=== PATIENT | male | born 1960 | race African-American/Black ===

== ENCOUNTER 2017-07-28 09:50 | Observation (INO) | payer OTHER ==
[2017-07-28] VITALS (9 sets, daily range): BP systolic 102–143; BP diastolic 63–81
[~2017-07-28] VITALS: Ht 177.8 cm; Wt 85.7 kg
[~2017-07-28 09:50] MED LIST: CHLO25TA PO
[2017-07-28] MEDS ORDERED: 0.9 % SODIUM CHLORIDE 10 ML DISP.SYRIN. IV PRN (10:00)
[2017-07-28] MEDS ORDERED: ASPIRIN 81 MG TAB.CHEW PO ONE (10:00)
[2017-07-28] MEDS ORDERED: IV NORMAL SALINE 1,000ML 1,000 ML IV SCH (10:00)
[2017-07-28] MEDS ORDERED: dilTIAZem 25 MG/5 ML VIAL IVP ONE ×2 (10:15→11:00)
--- NOTE | 2017-07-28 10:15 | EKG ---
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
--- NOTE | 2017-07-28 10:22 | PHYS DOC ---
Past History Past Medical History: A-Fib, Hypertension, Other Past Surgical History: No Surgical History Smoking: Non-smoker, Quit Greater Than 1 Year Alcohol Use: Occasionally Drug Use: None Adult General Chief Complaint Chief Complaint: Palpitations HPI HPI Patient is a pleasant 57-year-old otherwise healthy male with a history of hypertension and paroxysmal atrial fibrillation first identified back in 2069 presents with palpitations. Patient sent to the ER by his primary care physician Dr. Ivana Richmond for continued evaluation of his palpitations and evident tachycardia. Patient has no shortness breath, no chest pain, no lightheadedness, no dizziness, no fever, no chills, no exercise tolerance problems, no recent travel outside the country and lower lobes leg swelling. Patient admits he is only on a daily Aleve or aspirin takes amlodipine and hydrochlorothiazide for blood pressure. Differential diagnosis: Acute myocardial ischemia, heart failure, cardiac tamponade, bronchospasm, pulmonary embolism, pneumothorax, pulmonary infection i.e. bronchitis or pneumonia, upper airway obstruction, anaphylaxis, aspiration , psychogenic, pulmonary contusion, toxidrome, pneumomediastinum, noncardiogenic pulmonary edema or ARDS, COPD, tuberculosis, cystic fibrosis, asthma, high altitude pulmonary edema, valvular dysfunction, cardiac dysrhythmia , stroke, neuromuscular diseases like myasthenia gravis gravis, ALS, Guillain- Truong syndrome, metabolic acidosis to include diabetic ketoacidosis, sepsis, and obstructive disorders like massive obesity Review of Systems Review of Systems Constitutional: Denies fever or chills [] Eyes: Denies change in visual acuity, redness, or eye pain [] HENT: Denies nasal congestion or sore throat [] Respiratory: Denies cough or shortness of breath [] Cardiovascular: Patient's only complaint is palpitations without chest pain GI: Denies abdominal pain, nausea, vomiting, bloody stools or diarrhea [] : Denies dysuria or hematuria [] Musculoskeletal: Denies back pain or joint pain [] Integument: Denies rash or skin lesions [] Neurologic: Denies headache, focal weakness or sensory changes [] Endocrine: Denies polyuria or polydipsia [] All other systems were reviewed and found to be within normal limits, except as documented in this note. Current Medications Current Medications Current Medications Medications (Trade) Dose Ordered Sig/Sarai Start Time Stop Time Status Last Admin Dose Admin Aspirin (Children'S Aspirin) 324 mg 1X ONCE 07/28/17 10:00 07/28/17 10:01 DC Diltiazem HCl (Cardizem) 20 mg 1X ONCE 07/28/17 10:15 07/28/17 10:16 Sodium Chloride (Normal Saline Flush) 10 ml QSHIFT PRN 07/28/17 10:00 Allergies Allergies Allergies Coded Allergies Type Severity Reaction Last Updated Verified No Known Drug Allergies 08/07/13 No Physical Exam Physical Exam Other vital signs noted on the chart patient and be very tachycardic in the 150s and hypertensive. Constitutional: Well developed, well nourished, no acute distress, non-toxic appearance. [] HENT: Normocephalic, atraumatic, bilateral external ears normal, oropharynx moist, no oral exudates, nose normal. [] Eyes: PERRLA, EOMI, conjunctiva normal, no discharge. [] Neck: Normal range of motion, no tenderness, supple, no stridor. [] Cardiovascular: Patient has an irregular irregular rapid rhythm no murmurs Rubs[ ] Lungs & Thorax: Bilateral breath sounds clear to auscultation [] Abdomen: Bowel sounds normal, soft, no tenderness, no masses, no pulsatile masses. [] Skin: Warm, dry, no erythema, no rash. [] Back: No tenderness, no CVA tenderness. [] Extremities: No tenderness, no cyanosis, no clubbing, ROM intact, no edema. [] Neurologic: Alert and oriented X 3, normal motor function, normal sensory function, no focal deficits noted. [] Psychologic: Affect normal, judgement normal, mood normal. [] Current Patient Data Lab Results Laboratory Tests Test 07/28/17 10:10 White Blood Count 7.1 x10^3/uL (4.0-11.0) Red Blood Count 5.14 x10^6/uL (4.30-5.70) Hemoglobin 16.5 g/dL (13.0-17.5) Hematocrit 45.9 % (39.0-53.0) Mean Corpuscular Volume 89 fL (79-100) Mean Corpuscular Hemoglobin 32 pg (25-35) Mean Corpuscular Hemoglobin Concent 36 g/dL (31-37) Red Cell Distribution Width 13.7 % (11.5-14.5) Platelet Count 155 x10^3/uL (140-400) Neutrophils (%) (Auto) 54 % (31-73) Lymphocytes (%) (Auto) 29 % (24-48) Monocytes (%) (Auto) 13 % (0-9) H Eosinophils (%) (Auto) 3 % (0-3) Basophils (%) (Auto) 0 % (0-3) Neutrophils # (Auto) 3.9 x10^3uL (1.8-7.7) Lymphocytes # (Auto) 2.1 x10^3/uL (1.0-4.8) Monocytes # (Auto) 0.9 x10^3/uL (0.0-1.1) Eosinophils # (Auto) 0.2 x10^3/uL (0.0-0.7) Basophils # (Auto) 0.0 x10^3/uL (0.0-0.2) Sodium Level 140 mmol/L (136-145) Potassium Level 3.9 mmol/L (3.5-5.1) Chloride Level 103 mmol/L (98-107) Carbon Dioxide Level 33 mmol/L (21-32) H Anion Gap 4 (6-14) L Blood Urea Nitrogen 19 mg/dL (8-26) Creatinine 1.2 mg/dL (0.7-1.3) Estimated GFR (Cockcroft-Gault) 76.1 Glucose Level 108 mg/dL (70-99) H Calcium Level 9.1 mg/dL (8.5-10.1) Magnesium Level 1.9 mg/dL (1.8-2.4) Total Bilirubin 0.4 mg/dL (0.2-1.0) Direct Bilirubin 0.1 mg/dL (0.0-0.2) Aspartate Amino Transferase (AST) 21 U/L (15-37) Alanine Aminotransferase (ALT) 43 U/L (16-63) Alkaline Phosphatase 77 U/L (46-116) Creatine Kinase 215 U/L (39-308) Creatine Kinase MB (Mass) 0.7 ng/mL (0.0-3.6) Creatine Kinase MB Relative Index 0.3 % (0-4) Troponin I Quantitative < 0.017 ng/mL (0-0.055) EO-Tye-R-Type Natriuretic Peptide 14 pg/mL (0-124) Total Protein 7.5 g/dL (6.4-8.2) Albumin 4.0 g/dL (3.4-5.0) Lipase 250 U/L (73-393) EKG EKG []EKG timed timed 9:59 AM 07/28/17 patient's os tachycardia with an irregularly irregular rhythm there is no P wave noted this is A. fib and RVR there is no specific T wave or ST segment depression consistent with ischemia with exception of the inferior leads which is likely rate dependent, QRS width is 70 which is narrow, QTc is 458 which is otherwise normal. Radiology/Procedures Radiology/Procedures [] [address] [address] IMAGING REPORT Signed PATIENT: FREDDIE LINARES ACCOUNT: [id number] : 1960 LOCATION: ER AGE: 57 SEX: M EXAM STATUS: REG ER ORD. PHYSICIAN: NIMISHA BENNETT MD REASON: dysrhythmia PROCEDURE: CHEST PA & LATERAL PA AND LATERAL CHEST RADIOGRAPH Clinical Indication: dysrhythmia. Comparison: Two-view chest 08/07/2013. Findings: The cardiomediastinal silhouette is normal. Pulmonary vasculature is normal. Probable nipple shadow is seen on the left. The lungs are clear. No pleural effusion or pneumothorax is seen. There is no acute bone abnormality. IMPRESSION: No acute cardiopulmonary process. DICTATED AND SIGNED BY: LUZMARIA ARENAS MD DATE: 07/28/17 0825 CC: NIMISHA BENNETT MD; IVANA ARAUZ MD ~ Course & Med Decision Making Course & Med Decision Making Pertinent Labs and Imaging studies reviewed. (See chart for details) []he presents with A. fib and RVR but no shortness of breath no chest pain. I concern is given the duration of symptoms he has had patient has no on no anticoagulation. Despite not having shortness breath or chest pain patient was given a dose of Lovenox here to protect him from the development of possible clots given the irregular of his heart rate. Patient also given a dose of aspirin here in the emergency department before being given diltiazem and attempt to rate control him studies oriented calcium channel sonja with amlodipine. First dose of diltiazem 20 mg IV did not improve his heart much beyond 130s. Patient still having he for ablation and RVR. A second dose of 25 mg of IV diltiazem was ordered and an IV drip of diltiazem before the patient was moved to the ICU. Patient again is having no chest pain, no shortness of breath no exertional dyspnea. Coil Machine Operator note: Dr. Ivana Arauz Coil Machine Operator called at of the service service paged initially at 10:15 AM Consult called back at 10:15 am Discussed the case I presented and they agreed with admission. Time of acceptance 10:15 AM "I have assessed this patient clinically and believe that their condition requires an admission to the hospital. After consulting the admitting physician about this case, they have asked that I admit this patient to their service as an inpatient based on the clinical presentation and my impression." Differential diagnosis: Acute myocardial ischemia, heart failure, cardiac tamponade, bronchospasm, pulmonary embolism, pneumothorax, pulmonary infection i.e. bronchitis or pneumonia, upper airway obstruction, anaphylaxis, aspiration , psychogenic, pulmonary contusion, toxidrome, pneumomediastinum, noncardiogenic pulmonary edema or ARDS, COPD, tuberculosis, cystic fibrosis, asthma, high altitude pulmonary edema, valvular dysfunction, cardiac dysrhythmia , stroke, neuromuscular diseases like myasthenia gravis gravis, ALS, Guillain- Truong syndrome, metabolic acidosis to include diabetic ketoacidosis, sepsis, and obstructive disorders like massive obesity Critical Care: The high probability of sudden, clinically significant deterioration in the patient's condition required the highest level of my preparedness to intervene urgently. The services I provided to this patient were to treat and/or prevent clinically significant deterioration. Services included the following: chart data review, reviewing nursing notes and/or old charts, documentation time, dietitian consultant collaboration regarding findings and treatment options, medication orders and management, direct patient care, vital sign assessments and ordering, interpreting and reviewing diagnostic studies/ lab tests. Aggregate critical care time includes only time during which I was engaged in work directly related to the patient's care, as described above, whether at the bedside or elsewhere in the Emergency Department. It did not include time spent performing other reported procedures or the services of nurses or physician assistants. Critical Care Time: 30 Patient's two-view chest x-ray reviewed by me read by radiology at this time demonstrate no acute cardiopulmonary infiltrate or cardial megaly. Patient has no evidence of hemothorax pneumothorax or pleural effusion. Since proBNP and electrolytes and troponin. Are all within normal limits. Dragon Disclaimer Dragon Disclaimer This electronic medical record was generated, in whole or in part, using a voice recognition dictation system. Departure Departure: Impression: Primary Impression: Palpitations Additional Impressions: Atrial fibrillation with RVR Hypertension Disposition: ADMITTED INPATIENT Admitting Physician: Ivana Arauz Condition: GUARDED Referrals: IVANA ARAUZ MD (PCP) Problem Qualifiers NIMISHA BENNETT MD Jul 28, 2017 10:22
[2017-07-28] MEDS ORDERED: ONDANSETRON PF 4 MG/2 ML VIAL. IV PRN (10:30)
[2017-07-28] MEDS ORDERED: ACETAMINOPHEN 325 MG TABLET PO PRN (10:30)
[2017-07-28] MEDS ORDERED: ENOXAPARIN ** NOTE DOSE ** SYRINGE SQ ONE (10:30)
[2017-07-28] MEDS ORDERED: NITROGLYCERIN SUBLINGUAL 0.4 MG BOTTLE OF 25. SL PRN (10:30)
--- NOTE | 2017-07-28 10:30 | RAD ---
PA AND LATERAL CHEST RADIOGRAPH Clinical Indication: dysrhythmia. Comparison: Two-view chest 08/07/2013. Findings: The cardiomediastinal silhouette is normal. Pulmonary vasculature is normal. Probable nipple shadow is seen on the left. The lungs are clear. No pleural effusion or pneumothorax is seen. There is no acute bone abnormality. IMPRESSION: No acute cardiopulmonary process.
[2017-07-28 10:35] LABS: BASO % 0 % (0-3); EOS # 0.2 x10^3/uL (0.0-0.7); EOS % 3 % (0-3); HEMATOCRIT 45.9 % (39.0-53.0); HEMOGLOBIN 16.5 g/dL (13.0-17.5); LYMPH # 2.1 x10^3/uL (1.0-4.8); LYMPH % 29 % (24-48); MEAN CORPUSCULAR HEMOGLOBIN 32 pg (25-35); MEAN CORPUSCULAR HGB CONC 36 g/dL (31-37); MEAN CORPUSCULAR VOLUME 89 fL (79-100); MONO # 0.9 x10^3/uL (0.0-1.1); MONO % 13 % (0-9); NEUT # 3.9 x10^3uL (1.8-7.7); NEUT % 54 % (31-73); PLATELET COUNT 155 x10^3/uL (140-400); RED BLOOD COUNT 5.14 x10^6/uL (4.30-5.70); RED CELL DISTRIBUTION WIDTH 13.7 % (11.5-14.5); WHITE BLOOD COUNT 7.1 x10^3/uL (4.0-11.0)
[2017-07-28 10:51] LABS: CALCIUM 9.1 mg/dL (8.5-10.1); CREATININE 1.2 mg/dL (0.7-1.3); DIRECT BILIRUBIN 0.1 mg/dL (0.0-0.2); GFR 76.1; MAGNESIUM 1.9 mg/dL (1.8-2.4); POTASSIUM 3.9 mmol/L (3.5-5.1); TOTAL BILIRUBIN 0.4 mg/dL (0.2-1.0); TOTAL PROTEIN 7.5 g/dL (6.4-8.2)
[2017-07-28 11:30] LABS: BACTERIA,URINE 0 /HPF (0-FEW); BILIRUBIN,URINE NEG (NEG); CLARITY,URINE CLEAR; COLOR,URINE YELLOW; GLUCOSE,URINE NEG (NEG); NITRITE,URINE NEG (NEG); RBC,URINE OCC /HPF (0-2); SQUAMOUS EPITHELIAL CELL,UR OCC /LPF; UROBILINOGEN,URINE 0.2 mg/dL (0.2 mg/dL); WBC,URINE OCC /HPF (0-4)
[2017-07-28 11:34] LABS: PLT ESTIMATE ADEQUATE (ADEQUATE)
[2017-07-28 11:35] LABS: POLYCHROMASIA SLIGHT
[2017-07-28] MEDS ORDERED: IV NORMAL SALINE 1,000ML 1,000 ML IV ONE (12:30)
[2017-07-28] MEDS ORDERED: DIGOXIN IV 500 MCG/2 ML AMPUL. IV ONE (13:00)
[2017-07-28] MEDS: IV NORMAL SALINE 1,000ML 1,000 ML IV SCH ×2 (14:11→22:20)
--- NOTE | 2017-07-28 14:53 | PDOC2 ---
CONSULT Date of Admission DATE: 07/28/17 TIME: 14:52 Reason for Consult: Atrial fibrillation Referring Physician: Dr. Quinteros Chief Complaint Palpitations Source: Chart review, Patient Problem List Problems Medical Problems: (1) Atrial fibrillation with RVR Status: Acute (2) Hypertension Status: Acute (3) Palpitations Status: Acute History of Present Illness 57-year-old male was noted to have irregular heartbeat during routine physical exam at his PCPs office. EKG showed atrial fibrillation with RVR and hence he was sent to ER for further management. He was started on Cardizem and digoxin and admitted to hospital. He denied any palpitations as such. He also denied any chest pain, shortness of breath, dizziness or syncope. He denied any previous history of arrhythmias. Past Medical History Hypertension Past Surgical History No pertinent surgical history Family History Negative for premature coronary artery disease Social History Patient quit smoking more than a year ago and admitted to occasional alcohol intake. He denied any recent binge drinking. He also denied any illicit drug use. Current Medications Current Medications Aspirin (Children'S Aspirin) 324 mg 1X ONCE PO Last administered on 10:27; Start 07/28/17 at 10:00; Stop 07/28/17 at 10:01; Status DC Sodium Chloride 1,000 ml @ 1,000 mls/hr Q1H IV Last administered on 10:27; Start 07/28/17 at 10:00; Stop 07/28/17 at 10:59; Status DC Sodium Chloride (Normal Saline Flush) 10 ml QSHIFT PRN IV AFTER MEDS AND BLOOD DRAWS; Start 07/28/17 at 10:00 Diltiazem HCl (Cardizem) 20 mg 1X ONCE IVP Last administered on 07/28/17 10: 28; Start 07/28/17 at 10:15; Stop 07/28/17 at 10:16; Status DC Ondansetron HCl (Zofran) 4 mg PRN Q4HRS PRN IV NAUSEA/VOMITING; Start at 10:30; Stop 07/29/17 at 10:29 Fentanyl Citrate (Fentanyl 2ml Vial) 50 mcg PRN Q1HR PRN IV PAIN; Start at 10:30; Stop 07/29/17 at 10:29 Sodium Chloride 1,000 ml @ 125 mls/hr Q8H IV Last administered on 07/28/17 14:11; Start 07/28/17 at 10:30; Stop 07/29/17 at 10:29 Acetaminophen (Tylenol) 650 mg PRN Q4HRS PRN PO FEVER; Start 07/28/17 at 10:30 ; Stop 07/29/17 at 10:29 Nitroglycerin (Nitrostat) 0.4 mg PRN Q5MIN PRN SL CHEST PAIN; Start 07/28/17 at 10:30; Stop 07/29/17 at 10:29 Enoxaparin Sodium (Lovenox 80mg Syringe) 80 mg 1X ONCE SQ Last administered on 07/28/17 11:37; Start 07/28/17 at 10:30; Stop 07/28/17 at 10:32; Status DC Diltiazem HCl (Cardizem) 25 mg 1X ONCE IVP Last administered on 07/28/17 11: 07; Start 07/28/17 at 11:00; Stop 07/28/17 at 11:09; Status DC Diltiazem HCl 125 mg/Dextrose 125 ml @ 0 mls/hr 1X ONCE IV Last administered on 07/28/17 11:35; Start 07/28/17 at 11:00; Stop 07/28/17 at 11:09; Status DC Sodium Chloride 1,000 ml @ 1,000 mls/hr 1X ONCE IV Last administered on 07/28 12:23; Start 07/28/17 at 12:30; Stop 07/28/17 at 13:29; Status DC Digoxin (Lanoxin) 500 mcg 1X ONCE IV Last administered on 07/28/17 13:21; Start 07/28/17 at 13:00; Stop 07/28/17 at 13:07; Status DC Active Scripts Active Reported Chlorthalidone 25 Mg Tablet 25 Mg PO DAILY Allergies: Coded Allergies: No Known Drug Allergies (Unverified , 08/07/13) PSYCHOLOGICAL ROS: No: Hallucinations Eyes: No: Loss of vision HEENT: No: Epistaxis ENDOCRINE: No: Palpitations Respiratory: No: Hemoptysis, Shortness of breath Cardiovascular: No: Chest Pain Gastrointestinal: No: Vomiting Genitourinary: No: [place] Neurological: No: Seizures Skin: No: Rash General: Alert, Oriented X3 HEENT: Atraumatic, PERRLA Lungs: Clear to auscultation Heart: Other (heart rate irregular, tachycardic) Abdomen: Soft, No tenderness Extremities: No edema Psych/Mental Status: Mood NL VITALS Vital Signs Date Time Temp Pulse Resp B/P (MAP) Pulse Ox O2 Delivery O2 Flow Rate FiO2 07/28/17 13:21 133 150/76 07/28/17 09:50 98.1 16 99 Room Air Labs Laboratory Tests Test 07/28/17 10:10 07/28/17 11:00 White Blood Count 7.1 x10^3/uL (4.0-11.0) Red Blood Count 5.14 x10^6/uL (4.30-5.70) Hemoglobin 16.5 g/dL (13.0-17.5) Hematocrit 45.9 % (39.0-53.0) Mean Corpuscular Volume 89 fL (79-100) Mean Corpuscular Hemoglobin 32 pg (25-35) Mean Corpuscular Hemoglobin Concent 36 g/dL (31-37) Red Cell Distribution Width 13.7 % (11.5-14.5) Platelet Count 155 x10^3/uL (140-400) Neutrophils (%) (Auto) 54 % (31-73) Lymphocytes (%) (Auto) 29 % (24-48) Monocytes (%) (Auto) 13 % (0-9) Eosinophils (%) (Auto) 3 % (0-3) Basophils (%) (Auto) 0 % (0-3) Neutrophils # (Auto) 3.9 x10^3uL (1.8-7.7) Lymphocytes # (Auto) 2.1 x10^3/uL (1.0-4.8) Monocytes # (Auto) 0.9 x10^3/uL (0.0-1.1) Eosinophils # (Auto) 0.2 x10^3/uL (0.0-0.7) Basophils # (Auto) 0.0 x10^3/uL (0.0-0.2) Platelet Estimate Adequate (ADEQUATE) Large Platelets Occ Polychromasia Slight Sodium Level 140 mmol/L (136-145) Potassium Level 3.9 mmol/L (3.5-5.1) Chloride Level 103 mmol/L (98-107) Carbon Dioxide Level 33 mmol/L (21-32) Anion Gap 4 (6-14) Blood Urea Nitrogen 19 mg/dL (8-26) Creatinine 1.2 mg/dL (0.7-1.3) Estimated GFR (Cockcroft-Gault) 76.1 Glucose Level 108 mg/dL (70-99) Calcium Level 9.1 mg/dL (8.5-10.1) Magnesium Level 1.9 mg/dL (1.8-2.4) Total Bilirubin 0.4 mg/dL (0.2-1.0) Direct Bilirubin 0.1 mg/dL (0.0-0.2) Aspartate Amino Transf (AST/SGOT) 21 U/L (15-37) Alanine Aminotransferase (ALT/SGPT) 43 U/L (16-63) Alkaline Phosphatase 77 U/L (46-116) Creatine Kinase 215 U/L (39-308) Creatine Kinase MB (Mass) 0.7 ng/mL (0.0-3.6) Creatine Kinase MB Relative Index 0.3 % (0-4) Troponin I Quantitative < 0.017 ng/mL (0-0.055) CR-Nac-J-Type Natriuretic Peptide 14 pg/mL (0-124) Total Protein 7.5 g/dL (6.4-8.2) Albumin 4.0 g/dL (3.4-5.0) Lipase 250 U/L (73-393) Urine Collection Type Unknown Urine Color Yellow Urine Clarity Clear Urine pH 7.0 Urine Specific [place] 1.010 Urine Protein Neg (NEG-TRACE) Urine Glucose (UA) Neg mg/dL (NEG) Urine Ketones (Stick) Neg mg/dL (NEG) Urine Blood Neg (NEG) Urine Nitrite Neg (NEG) Urine Bilirubin Neg (NEG) Urine Urobilinogen Dipstick 0.2 mg/dL (0.2 mg/dL) Urine Leukocyte Esterase Neg (NEG) Urine RBC Occ /HPF (0-2) Urine WBC Occ /HPF (0-4) Urine Squamous Epithelial Cells Occ /LPF Urine Bacteria 0 /HPF (0-FEW) Assessment/Plan 1. Atrial fibrillation with rapid ventricular response, new onset. Continue to titrate intravenous Cardizem for rate control and start Eliquis for stroke prophylaxis. Check 2-D echo to assess LV systolic function. If he does not convert to sinus rhythm, we will plan for outpatient cardioversion after 3-4 weeks of therapeutic anticoagulation. 2. Hypertension: Well-controlled Thank you for your consultation Problems: CARLOS MCNULTY MD Jul 28, 2017 14:53
[2017-07-28] MEDS ORDERED: AMLO5TAB2 PO (16:39)
[2017-07-28] MEDS: APIXABAN 5 MG TABLET. PO SCH (20:37)
[2017-07-29] VITALS (11 sets, daily range): BP systolic 124–177; BP diastolic 73–93
[2017-07-29] MEDS: IV NORMAL SALINE 1,000ML 1,000 ML IV SCH (05:36)
[2017-07-29 06:51] LABS: BASO # 0.1 x10^3/uL (0.0-0.2); BASO % 1 % (0-3); EOS # 0.2 x10^3/uL (0.0-0.7); EOS % 3 % (0-3); HEMATOCRIT 41.9 % (39.0-53.0); HEMOGLOBIN 14.8 g/dL (13.0-17.5); LYMPH # 1.7 x10^3/uL (1.0-4.8); LYMPH % 31 % (24-48); MEAN CORPUSCULAR HEMOGLOBIN 32 pg (25-35); MEAN CORPUSCULAR HGB CONC 35 g/dL (31-37); MEAN CORPUSCULAR VOLUME 89 fL (79-100); MONO # 0.6 x10^3/uL (0.0-1.1); MONO % 11 % (0-9); NEUT % 54 % (31-73); PLATELET COUNT 127 x10^3/uL (140-400); RED CELL DISTRIBUTION WIDTH 13.7 % (11.5-14.5); WHITE BLOOD COUNT 5.6 x10^3/uL (4.0-11.0)
[2017-07-29 06:59] LABS: CREATININE 1.1 mg/dL (0.7-1.3); GFR 84.1; POTASSIUM 3.7 mmol/L (3.5-5.1)
[2017-07-29] MEDS: APIXABAN 5 MG TABLET. PO SCH (08:59)
--- NOTE | 2017-07-29 11:05 | PDOC3 ---
Discharge Summary Visit Information Final Diagnosis Problems Medical Problems: (1) Atrial fibrillation with RVR Status: Acute (2) Hypertension Status: Acute (3) Palpitations Status: Acute Problems: Brief Hospital Course Allergies Allergies Coded Allergies Type Severity Reaction Last Updated Verified No Known Drug Allergies 08/07/13 No Vital Signs Vital Signs Date Time Temp Pulse Resp B/P (MAP) Pulse Ox O2 Delivery O2 Flow Rate FiO2 07/29/17 10:07 81 20 141/81 (101) 97 Room Air 07/29/17 09:00 98.4 Lab Results Laboratory Tests Test 07/28/17 10:10 07/28/17 11:00 07/28/17 15:40 07/28/17 22:30 White Blood Count 7.1 x10^3/uL (4.0-11.0) Red Blood Count 5.14 x10^6/uL (4.30-5.70) Hemoglobin 16.5 g/dL (13.0-17.5) Hematocrit 45.9 % (39.0-53.0) Mean Corpuscular Volume 89 fL (79-100) Mean Corpuscular Hemoglobin 32 pg (25-35) Mean Corpuscular Hemoglobin Concent 36 g/dL (31-37) Red Cell Distribution Width 13.7 % (11.5-14.5) Platelet Count 155 x10^3/uL (140-400) Neutrophils (%) (Auto) 54 % (31-73) Lymphocytes (%) (Auto) 29 % (24-48) Monocytes (%) (Auto) 13 % (0-9) Eosinophils (%) (Auto) 3 % (0-3) Basophils (%) (Auto) 0 % (0-3) Neutrophils # (Auto) 3.9 x10^3uL (1.8-7.7) Lymphocytes # (Auto) 2.1 x10^3/uL (1.0-4.8) Monocytes # (Auto) 0.9 x10^3/uL (0.0-1.1) Eosinophils # (Auto) 0.2 x10^3/uL (0.0-0.7) Basophils # (Auto) 0.0 x10^3/uL (0.0-0.2) Platelet Estimate Adequate (ADEQUATE) Large Platelets Occ Polychromasia Slight Sodium Level 140 mmol/L (136-145) Potassium Level 3.9 mmol/L (3.5-5.1) Chloride Level 103 mmol/L (98-107) Carbon Dioxide Level 33 mmol/L (21-32) Anion Gap 4 (6-14) Blood Urea Nitrogen 19 mg/dL (8-26) Creatinine 1.2 mg/dL (0.7-1.3) Estimated GFR (Cockcroft-Gault) 76.1 Glucose Level 108 mg/dL (70-99) Calcium Level 9.1 mg/dL (8.5-10.1) Magnesium Level 1.9 mg/dL (1.8-2.4) Total Bilirubin 0.4 mg/dL (0.2-1.0) Direct Bilirubin 0.1 mg/dL (0.0-0.2) Aspartate Amino Transf (AST/SGOT) 21 U/L (15-37) Alanine Aminotransferase (ALT/SGPT) 43 U/L (16-63) Alkaline Phosphatase 77 U/L (46-116) Creatine Kinase 215 U/L (39-308) Creatine Kinase MB (Mass) 0.7 ng/mL (0.0-3.6) Creatine Kinase MB Relative Index 0.3 % (0-4) Troponin I Quantitative < 0.017 ng/mL (0-0.055) 0.017 ng/mL (0-0.055) < 0.017 ng/mL (0-0.055) AG-Dxk-W-Type Natriuretic Peptide 14 pg/mL (0-124) Total Protein 7.5 g/dL (6.4-8.2) Albumin 4.0 g/dL (3.4-5.0) Lipase 250 U/L (73-393) Thyroid Stimulating Hormone (TSH) 1.320 uIU/mL (0.358-3.740) Urine Collection Type Unknown Urine Color Yellow Urine Clarity Clear Urine pH 7.0 Urine Specific [place] 1.010 Urine Protein Neg (NEG-TRACE) Urine Glucose (UA) Neg mg/dL (NEG) Urine Ketones (Stick) Neg mg/dL (NEG) Urine Blood Neg (NEG) Urine Nitrite Neg (NEG) Urine Bilirubin Neg (NEG) Urine Urobilinogen Dipstick 0.2 mg/dL (0.2 mg/dL) Urine Leukocyte Esterase Neg (NEG) Urine RBC Occ /HPF (0-2) Urine WBC Occ /HPF (0-4) Urine Squamous Epithelial Cells Occ /LPF Urine Bacteria 0 /HPF (0-FEW) Test 07/29/17 06:18 White Blood Count 5.6 x10^3/uL (4.0-11.0) Red Blood Count 4.70 x10^6/uL (4.30-5.70) Hemoglobin 14.8 g/dL (13.0-17.5) Hematocrit 41.9 % (39.0-53.0) Mean Corpuscular Volume 89 fL (79-100) Mean Corpuscular Hemoglobin 32 pg (25-35) Mean Corpuscular Hemoglobin Concent 35 g/dL (31-37) Red Cell Distribution Width 13.7 % (11.5-14.5) Platelet Count 127 x10^3/uL (140-400) Neutrophils (%) (Auto) 54 % (31-73) Lymphocytes (%) (Auto) 31 % (24-48) Monocytes (%) (Auto) 11 % (0-9) Eosinophils (%) (Auto) 3 % (0-3) Basophils (%) (Auto) 1 % (0-3) Neutrophils # (Auto) 3.0 x10^3uL (1.8-7.7) Lymphocytes # (Auto) 1.7 x10^3/uL (1.0-4.8) Monocytes # (Auto) 0.6 x10^3/uL (0.0-1.1) Eosinophils # (Auto) 0.2 x10^3/uL (0.0-0.7) Basophils # (Auto) 0.1 x10^3/uL (0.0-0.2) Sodium Level 140 mmol/L (136-145) Potassium Level 3.7 mmol/L (3.5-5.1) Chloride Level 106 mmol/L (98-107) Carbon Dioxide Level 27 mmol/L (21-32) Anion Gap 7 (6-14) Blood Urea Nitrogen 12 mg/dL (8-26) Creatinine 1.1 mg/dL (0.7-1.3) Estimated GFR (Cockcroft-Gault) 84.1 Glucose Level 106 mg/dL (70-99) Calcium Level 8.0 mg/dL (8.5-10.1) Brief Hospital Course Mr. Huizar is a 57 old [sex] who presented with [ ] Discharge Information Dischare Medications Current Medications Aspirin (Children'S Aspirin) 324 mg 1X ONCE PO Last administered on 10:27; Start 07/28/17 at 10:00; Stop 07/28/17 at 10:01; Status DC Sodium Chloride 1,000 ml @ 1,000 mls/hr Q1H IV Last administered on 10:27; Start 07/28/17 at 10:00; Stop 07/28/17 at 10:59; Status DC Sodium Chloride (Normal Saline Flush) 10 ml QSHIFT PRN IV AFTER MEDS AND BLOOD DRAWS; Start 07/28/17 at 10:00 Diltiazem HCl (Cardizem) 20 mg 1X ONCE IVP Last administered on 07/28/17 10: 28; Start 07/28/17 at 10:15; Stop 07/28/17 at 10:16; Status DC Ondansetron HCl (Zofran) 4 mg PRN Q4HRS PRN IV NAUSEA/VOMITING; Start at 10:30; Stop 07/29/17 at 10:29; Status DC Fentanyl Citrate (Fentanyl 2ml Vial) 50 mcg PRN Q1HR PRN IV PAIN; Start at 10:30; Stop 07/29/17 at 10:29; Status DC Sodium Chloride 1,000 ml @ 125 mls/hr Q8H IV Last administered on 07/29/17 05:36; Start 07/28/17 at 10:30; Stop 07/29/17 at 10:29; Status DC Acetaminophen (Tylenol) 650 mg PRN Q4HRS PRN PO FEVER; Start 07/28/17 at 10:30 ; Stop 07/29/17 at 10:29; Status DC Nitroglycerin (Nitrostat) 0.4 mg PRN Q5MIN PRN SL CHEST PAIN; Start 07/28/17 at 10:30; Stop 07/29/17 at 10:29; Status DC Enoxaparin Sodium (Lovenox 80mg Syringe) 80 mg 1X ONCE SQ Last administered on 07/28/17 11:37; Start 07/28/17 at 10:30; Stop 07/28/17 at 10:32; Status DC Diltiazem HCl (Cardizem) 25 mg 1X ONCE IVP Last administered on 07/28/17 11: 07; Start 07/28/17 at 11:00; Stop 07/28/17 at 11:09; Status DC Diltiazem HCl 125 mg/Dextrose 125 ml @ 0 mls/hr 1X ONCE IV Last administered on 07/28/17 11:35; Start 07/28/17 at 11:00; Stop 07/28/17 at 11:09; Status DC Sodium Chloride 1,000 ml @ 1,000 mls/hr 1X ONCE IV Last administered on 07/28 12:23; Start 07/28/17 at 12:30; Stop 07/28/17 at 13:29; Status DC Digoxin (Lanoxin) 500 mcg 1X ONCE IV Last administered on 07/28/17 13:21; Start 07/28/17 at 13:00; Stop 07/28/17 at 13:07; Status DC Apixaban (Eliquis) 5 mg BID PO Last administered on 07/29/17 08:59; Start at 21:00 Diltiazem HCl 125 mg/Dextrose 125 ml @ 0 mls/hr CONT PRN IV SEE I/O RECORD; Start 07/28/17 at 17:30; Stop 07/29/17 at 08:33; Status DC Diltiazem HCl (Cardizem 24hr Cd) 120 mg DAILY PO Last administered on 09:00; Start 07/29/17 at 09:00 Active Scripts Active Reported Amlodipine Besylate 5 Mg Tablet 1 Tab PO DAILY Chlorthalidone 25 Mg Tablet 25 Mg PO DAILY IVANA ARAUZ MD Jul 29, 2017 11:05
[2017-07-29] MEDS ORDERED: DILT120C80 PO (11:07)
--- NOTE | 2017-07-29 11:45 | DS ---
DATE OF DISCHARGE: A 57-year-old gentleman came in with palpitations, fluttering in the chest, was noted to have atrial fibrillation with rapid ventricular response, was admitted to the ICU where he converted on his own. He was started on Cardizem, diltiazem drip. The patient made excellent progress during the rest of his hospitalization. Cardiac enzymes were negative as well as his thyroid. Calcium was a smidgen low at 8. Magnesium was good at 1.9. Blood sugar 108, BUN and creatinine as well as other electrolytes were basically normal as well as his CBC except for a slightly low white count of 127, did have a slight increase in his monocytes. In any case, the patient made good progress, was seen by Dr. Jones, commercial fisher, dismissed him and have him follow up accordingly as an outpatient. IMPRESSION: Therefore new onset of atrial fibrillation with rapid ventricular response, hypocalcemia, thrombocytopenia. PLAN: The patient will be discharged home. Follow up as an outpatient. Heart healthy diet, decreased activity. Follow up with Cardiology and with Dr. Arauz in 7-10 days or sooner as needed. Phone number is given. IVANA ARAUZ MD DR: BJ/luis JOB#: [id number] / [id number]
== END 2017-07-29 12:15 | disposition home or self-care (01) ==
LOC: ER 09:50 → ICU 14:42 → UNDOADMIN 14:42 → INTOOBSV 14:42 → UNDODISIN 07-29 12:15
PROVIDERS: ADMIT Family Medicine; ATTEND Family Medicine
DX: I48.1 Persistent atrial fibrillation (principal); D69.6 Thrombocytopenia, unspecified; E83.51 Hypocalcemia; I10 Essential (primary) hypertension; I49.8 Other specified cardiac arrhythmias; R35.1 Nocturia; Z87.891 Personal history of nicotine dependence; Z79.01 Long term (current) use of anticoagulants
CPT/HCPCS: 36415; 71020; 80048; 80076; 81001; 82553; 83690; 83735; 83880; 84443; 84484; 85025; 87641; 93005; 96361; 96365; 96372; 96375; 96376; 99291; G0378; G0379; J1160; J1650; J3490; J7030

== ENCOUNTER → 2017-08-28 | Outpatient (CLI) | payer OTHER ==
[2017-07-29 11:11] VITALS: BP 135/81
[~2017-08-28] MED LIST changes: +AMLO5TAB2 PO; +DILT120C80 PO
--- NOTE | 2017-08-28 17:44 | CARD ---
MR#: [id number] Date of Study: 08/28/2017 Ordering Physician: CARLOS MCNULTY, Referring Physician: Charley CAMARENA: [facility] APPROVED REPORT EXAM: Two-dimensional and M-mode echocardiogram with Doppler and color Doppler. Other Information HR: 54bpm INDICATION Atrial Fibrillation 2D DIMENSIONS Left Atrium(2D)3.1 (1.6-4.0cm)IVSd1.1 (0.7-1.1cm) Aortic Root(2D)3.5 (2.0-3.7cm)LVDd5.1 (3.9-5.9cm) LVOT Diameter2.2 (1.8-2.4cm)PWd1.1 (0.7-1.1cm) LVDs2.7 (2.5-4.0cm)FS (%) 25.0 % SV36.6 mlLVEF(%)50.0 (>50%) M-Mode DIMENSIONS IVSd1.38 (0.7-1.1cm)LVDd5.24 (4.0-5.6cm) PWd0.91 (0.7-1.1cm)FS (%) 54 % LVDs2.43 (2.0-3.8cm)ESV(Teich)20.8 ml LVEF(%)84 (>50%) Aortic Valve AoV Peak Sami.105.2cm/sAoV VTI20.6cm AO Peak GR.4.4mmHgLVOT Peak Sami.88.9cm/s AO Mean GR.2mmHgAVA (VMAX)3.18cm2 Mitral Valve MV E Uuzzhxyw44.0cm/sMV E Peak Gr.88mmHg MV DECEL [id number] A Aairbzhn94.9cm/s E/A Ratio0.8 Pulmonary Valve PV Peak Genqzuqt11.2cm/sPV Peak Grad.1mmHg Pulmonary Vein S1 Pfsqpcjt87.7cm/sD2 Ebtllsaq92.8cm/s LEFT VENTRICLE The left ventricle is normal size. There is borderline concentric left ventricular hypertrophy. Left ventricle systolic function is low normal. The Ejection Fraction is 50-55%. There is normal LV segmen fabiana wall motion. Transmitral Doppler flow pattern is Grade I-abnormal relaxation pattern. RIGHT VENTRICLE The right ventricle is normal size. The right ventricular systolic function is normal. ATRIA The left atrium size is normal. The right atrium size is normal. The interatrial septum is intact wit h no evidence for an atrial septal defect or patent foramen ovale as noted on 2-D or Doppler imaging. AORTIC VALVE The aortic valve is mildly thickened but opens well. Doppler and Color Flow revealed trace aortic reg urgitation. There is no significant aortic valvular stenosis. There is no aortic valvular vegetation. MITRAL VALVE The mitral valve is thickened but opens well. A mild mitral valve prolapse is present. There is no mi tral valve stenosis. Doppler and Color-flow revealed mild mitral regurgitation. TRICUSPID VALVE The tricuspid valve is normal in structure and function. Doppler and Color Flow revealed no tricuspid valve regurgitation noted. There is no tricuspid valve prolapse or vegetation. There is no tricuspid valve stenosis. PULMONIC VALVE Doppler and Color Flow revealed mild to moderate pulmonic valvular regurgitation. There is no pulmoni c valvular stenosis. GREAT VESSELS The aortic root is normal in size. The IVC is normal in size and collapses >50% with inspiration. PERICARDIAL EFFUSION There is no pleural effusion. There is no evidence of significant pericardial effusion. Critical Notification Critical Value: No <Conclusion> There is normal LV segmental wall motion. Left ventricle systolic function is low normal. The Ejection Fraction is 50-55%. Signed by : Dell Mazariegso, Electronically Approved : 08/28/2017 17:43:49
== END | disposition home or self-care (01) ==
LOC: ECHO 11:12
PROVIDERS: ATTEND Internal Medicine Cardiovascular Disease
DX: I48.1 Persistent atrial fibrillation (principal); I08.8 Other rheumatic multiple valve diseases; I10 Essential (primary) hypertension; Z87.891 Personal history of nicotine dependence
CPT/HCPCS: 93306